=== PATIENT | male | born 2000 | race Caucasian/White ===

== ENCOUNTER 2024-11-25 16:20 | Emergency (ER) | payer BC, SELFPAY ==
--- NOTE | 2024-11-25 16:26 | ED_ITS ---
HPI - General Adult General Chief complaint: Upper Respiratory Infection Stated complaint: Strep throat Time Seen by Provider: 11/25/24 16:26 Source: patient Mode of arrival: ambulatory Limitations: no limitations History of Present Illness HPI narrative: 24-year-old male patient presents to the [facility] with complaints of a sore throat for the past 2-3 days. Denies fever but states has had some body aches and chills. Patient states he has had a mild cough and a little bit of a runny nose and congestion. Denies ear pain. Denies chest pain or shortness of breath. Denies abdominal pain, nausea, vomiting or diarrhea. Related Data Home Medications ?Medication ?Instructions ?Recorded ?Confirmed ?Last Taken ?Type No Home Medications 11/25/24 11/25/24 Unknown History Allergies Allergy/AdvReac Type Severity Reaction Status Date / Time No Known Allergies Allergy Verified 11/25/24 16:33 Review of Systems Review of Systems: CONSTITUTIONAL: Denies fever, Positive body aches and chills, or sweats. EYES: Denies visual changes, redness, or discharge. ENT: positive rhinorrhea, congestion, sore throat, denies otalgia. CARDIOVASCULAR: Denies chest pain, palpitations, or edema. RESPIRATORY: positive cough , denies dyspnea. GASTROINTESTINAL: Denies abdominal pain, nausea, vomiting, or diarrhea. GENITOURINARY: Denies dysuria or hematuria. SKIN: Denies rash or itching. MUSCULOSKELETAL: Denies back pain, joint pain, or myalgia. NEUROLOGIC: Denies headache, numbness, or weakness. PSYCHIATRIC: Denies anxiety or depression. PMFSH Comments At the time of my signature I agree with nursing past medical history, surgical, social, and family history. There is no relevant family history pertinent to the presenting complaint. Exam Narrative: GENERAL: Well-appearing, well-nourished, and in no acute distress. HEAD: Normocephalic, atraumatic. EYES: PERRLA and EOMI. ENT: Nares with erythema and edema noted bilaterally, no rhinorrhea or epistaxis. Mucous membranes moist. posterior pharynx with 3+ tonsillar enlargement with erythema and there is white patches noted to bilateral tonsils. bilateral TMs are clear no erythema or foreign bodies the canal. NECK: Supple. No lymphadenopathy CHEST: Clear to auscultation. No respiratory distress. HEART: Regular rate and rhythm. No murmur heard. Normal peripheral pulses. ABDOMEN: Soft, nontender, nondistended, normal active bowel sounds. EXTREMITIES: Normal range of motion. No edema. SKIN: Warm, dry, no rash. NEURO: No focal deficits. Alert and oriented x3. Course Course Level of Care: Express Care Visit Vital Signs Vital signs: Vital Signs Temperature 37.2 C 11/25/24 16:32 Pulse Rate 92 11/25/24 16:32 Respiratory Rate 18 11/25/24 16:32 Blood Pressure 143/94 H 11/25/24 16:32 Pulse Oximetry 97 11/25/24 16:32 Oxygen Delivery Room Air 11/25/24 16:32 Temperature 37.2 C 11/25/24 16:32 Pulse Rate 92 11/25/24 16:32 Respiratory Rate 18 11/25/24 16:32 Blood Pressure 143/94 H 11/25/24 16:32 Pulse Oximetry 97 11/25/24 16:32 Oxygen Delivery Room Air 11/25/24 16:32 vital signs reviewed The patient has been informed that they may have pre-hypertension or Hypertension based on a BP reading in the department. I recommend that the patient call the primary care provider listed on their discharge instructions or a physician of their choice this week to arrange follow up for further evaluation of possible pre-hypertension or Hypertension Medical Decision Making MDM Narrative Medical decision making narrative: discussed with patient that his point of care testing for strep was negative. We will send that to the lab for culture and if the culture comes back positive we will call him in antibiotics at that time. Discussed with patient and offered testing for flu and COVID while he was here and he has agreed. Discussed with him that if these are negative would continue to recommend using [id number] medications to help with symptoms. Patient verbalized understanding denies any other questions or concerns at this time. Differential Diagnosis Differential Diagnosis: differential diagnosis: Viral pharyngitis, pharyngitis, group A strep, infectious mononucleosis, gonococcal pharyngitis, exudative pharyngitis, oral ca ndidiasis. Chronic allergies, postnasal drip, GERD, abscess formation, but glottitis, retropharyngeal abscess formation, or airway obstruction. Vital Signs Vital Signs: Vital Signs Temperature 37.2 C 11/25/24 16:32 Pulse Rate 92 11/25/24 16:32 Respiratory Rate 18 11/25/24 16:32 Blood Pressure 143/94 H 11/25/24 16:32 Pulse Oximetry 97 11/25/24 16:32 Oxygen Delivery Room Air 11/25/24 16:32 Temperature 37.2 C 11/25/24 16:32 Pulse Rate 92 11/25/24 16:32 Respiratory Rate 18 11/25/24 16:32 Blood Pressure 143/94 H 11/25/24 16:32 Pulse Oximetry 97 11/25/24 16:32 Oxygen Delivery Room Air 11/25/24 16:32 Lab Data Labs: Lab Results 11/25/24 Range/Units 16:45 POC Grp A Strep Screen Negative (Negative) Critical Care Time Critical Care Time Critical Care Time: No Discharge Plan Discharge Clinical Impression: Exudative pharyngitis Patient Disposition: Home, Self-Care Condition: Stable Instructions: Antibiotic Form, Pharyngitis (ED) Additional Instructions: A sore throat can be caused by an infection from a virus or bacteria. Sore throat can also be caused by postnasal drip, allergies, and exposure to smoke. A viral sore throat last 3-4 days and cannot be treated with antibiotics. One type of sore throat virus, infectious mononucleosis ( mono ), can last for 3 weeks and older children. The germs that cause these infections are contagious and can be spread by coughing or sharing drinks or utensils. Contact her primary care physician or go to the ER if: Your trouble breathing or swallowing because her throat is swollen or sore. You're drooling because it hurts too much to swallow. You're painful lump in your throat go away after 5 days. You're fever is higher than 10 2??F or last longer than 3 days. You have confusion. You are blood in your throat. You're sore throat should feel better within 3-5 days without treatment if it is caused by virus. You may need the following: Ibuprofen or Tylenol as needed for pain or fever Gargle warm salt water Drink more liquids, cold or warm drinks may help soothe her throat. Humidifier in your room. Cough drops, ice, soft foods, or popsicles may help soothe her throat. A spoonful of honey could help with inflammation and soothe her throat. Wash her hands with soap and water, do not share food or drinks, throat away her toothbrush after 72 hours. Patient Language: Thai Prescriptions: No Action No Home Medications Follow-up/Referrals: Codey Mckeon DO [Primary Care Provider] - Time of Disposition: 17:05
--- OUTSIDE RECORDS SUMMARY | 2024-11-25 16:29 | XMS_ITS | Clinical Summary ---
Author Organization [facility] Address [address] [place] [address] Care Team Providers Care Paralegal Instructor Name Role Phone López Mckeon DO Primary Care Provider + Allergies No known active allergies Medications cyclobenzaprine (FLEXERIL) 10 MG tablet Take 1 tablet (10 mg total) by mouth 3 (three) times daily as needed. 06/24/2024 Active hydrOXYzine (VISTARIL) 50 MG capsule TAKE 1 CAPSULE BY MOUTH FOUR TIMES DAILY NEEDED 06/24/2024 Active multivitamin with minerals liquid Take 15 mLs by mouth daily. Active Active Problems Problem Noted Date Diagnosed Date ADHD 11/27/2019 Immunizations Name Administration Dates Next Due Dtap 02/25/2003, 9,1998,1998,04/01 HPV4 (Gardasil) 04/04/2012 Hepatitis A (Generic) 04/04/2012 Hepatitis B 1998,1998 Hepatitis B (Generic Peds) 1998 Hib (Generic) 07/28/1999,1998,1998 ,1998 Influenza Adult (Generic) 05/23/2009 MMR 02/25/2003,05/18/1999 Menactra 04/04/2012 Polio Ipv (Generic) 02/25/2003,1998,1997,1998 Tdap (Boostrix) 04/04/2012 Varicella Vaccine 04/04/2012,04/17/1999 Family History Medical History Relation Comments Hypertension Mother Kidney Disease Mother Lupus Mother Relation Status Comments Mother Social History Tobacco Use Types Packs/Day Years Used Date Smoking Tobacco: Every Day Electronic Cigarettes Smokeless Tobacco: Never Tobacco Cessation:Ready to Q uit: No; Counseling Given: Yes Comments:Provider to dependency counselor Alcohol Use Standard Drinks/Week Comments Not Currently 0 (1 standard drink = 0.6 oz pur e alcohol) Social events PHQ-2 Answer Date Recorded Patient Health Questionnaire-2 Score 0 05/08/2024 Sex and Gender Information Value Date Recorded Sex Assigned at Not on file Legal Sex Male 9:42 AM CALCULUS PROFESSOR Gender Identity Not on file Sexual Orientation Not on file Occupation Industry Job Start Date Job End Date Not on file Not on file Not on file Not on file Last Filed Vital Signs Vital Sign Reading Time Taken Comments Blood Pressure 122/86 07/03/2024 8:00 AM CALCULUS PROFESSOR Pulse 105 07/03/2024 8:00 AM CALCULUS PROFESSOR Temperature 36.8 C (98.3 F) 07/03/2024 8:00 AM CALCULUS PROFESSOR Respiratory Rate 16 07/03/2024 8:00 AM CALCULUS PROFESSOR Oxygen Saturation 98% 07/03/2024 8:00 AM CALCULUS PROFESSOR Inhaled Oxygen Concentration - - Weight 106.7 kg (235 lb 4.8 oz) 07/03/2024 8:00 AM CALCULUS PROFESSOR Height 180.3 cm (5' 11 ) 07/03/2024 8:00 AM CALCULUS PROFESSOR Body Mass Index 32.82 07/03/2024 8:00 AM CALCULUS PROFESSOR Plan of Treatment Health Maintenance Due Date Last Done Comments Pneumococcal Vaccine: Pediatrics (0 to 5 Years) and At-Risk Patients (6 to 64 Years) (1 of 2 - PCV) 01/16/2004 HPV Vaccines (2 - Male 2-dose series) 10/05/2012 04/04/2012 Annual Physical 08/24/2019 08/24/2018 DTaP, Tdap and Td Vaccines (7 - Td or Tdap) 04/04/2022 04/04/2012, 02/25/2003, 07/28/1999, Additional history exists PHQ-2 (Physician [place]) 08/29/2024 05/08/2024 COVID-19 Vaccine ( season) 2025 Postponed from 04/29/2024 (Going to Outside Clinic) Hepatitis B Vaccines Completed 1998, 1998, 1998 Meningococcal Vaccine Aged Out 04/04/2012 No jaqueline yamilet eligible based on patient's age to complete this topic Hepatitis C Completed 05/08/2024 Meningococcal B Vaccine Aged Out No l onger eligible based on patient's age to complete this topic RSV Immunizations Under 20 Months Aged Out No longer eligible based on patient's age to complete this topic Procedures Procedure Name Priority Date/Time Associated Diagnosis Comments HEPATITIS C ANTIBODY Routine 05/08/2024 10:14 AM CDT Need for hepatitis C screening test from Last 3 Months or Most Recently Relevant to Health Maintenance Results * HEPATITIS C ANTIBODY (05/08/2024 10:14 AM CDT) HEPATITIS C AB NON-REACTI VE NON-REACT VERONIKA 05/08/2024 6:52 PM CDT [facility] Comment: ANTIBODIES TO HCV NOT DETECTED. DOES NOT EXCLUDE THE POSSIBILITY OF EXPOSURE TO HCV. 05/08/2024 10:1 4 AM CDT us López Mckeon DO LABORATORY Final Re sult [facility] [address] [place] [address], [id number] from Last 3 Months or Most Recently Relevant to Health Maintenance [place] [place] [address] Care Teams Paralegal Instructor Relationship Specialty Start Date End Date López Mckeon DO [address] [place] [address] [phone] PCP - General FAMILY PRACTICE 08/10/18
--- OUTSIDE RECORDS SUMMARY | 2024-11-25 16:29 | XMS_ITS | Clinical Summary ---
Author Organization [facility] [address] Address [address] [place] [address] Care Team Providers Care Shipyard Painting Supervisor Name Role Phone Unknown, Notinfile Primary Care Provider Unavail able Allergies No known active allergies Medications predniSONE (DELTASONE) 10 mg tablet Take 4 tabs days 1-3, take 3 tabs day 4-6, take 2 tabs day 7-9, take 1 tab days 10-14 32 tablet 10/27/2023 Active triamcinolone (KENALOG) 0.1 % cream Apply to affected area 1-2 times daily as needed. Avoid face and groin. 30 g 10/27/2023 Active Active Problems Problem Noted Date Diagnosed Date ADHD 11/27/2019 Social History Tobacco Use Types Packs/Day Years Used Date Smoking Tobacco: Never Assessed Sex and Gender Information Value Date Recorded Sex Assigned at Not on file Legal Sex Male 8:37 AM CUTTER GRINDER OPERATOR Gender Identity Male 10/27/2023 4:42 PM CUTTER GRINDER OPERATOR Sexual Orientation Straight 10/27/2023 4: 42 PM CUTTER GRINDER OPERATOR Obstetrics History Last Filed Vital Signs Vital Sign Reading Time Taken Comments Blood Pressure 156/78 10/27/2023 5:39 PM CUTTER GRINDER OPERATOR Pulse 87 10/27/2023 5:39 PM CUTTER GRINDER OPERATOR Temperature 36.9 C (98.4 F) 10/27/2023 5:39 PM CUTTER GRINDER OPERATOR Respiratory Rate 12 10/27/2023 5:39 PM CUTTER GRINDER OPERATOR Oxygen Saturation 97% 10/27/2023 5:39 PM CUTTER GRINDER OPERATOR Inhaled Oxygen Concentration - - Weight 90.7 kg (200 lb) 10/27/2023 5:39 PM CUTTER GRINDER OPERATOR Height 180.3 cm (5' 11 ) 10/27/2023 5:39 PM CUTTER GRINDER OPERATOR Body Mass Index 27.89 10/27/2023 5:39 PM CUTTER GRINDER OPERATOR Plan of Treatment Health Maintenance Due Date Last Done Comments Depression Screening 1998 Hepatitis C Screening 1998 HPV Vaccines (2 - Male 2-dose series) 10/05/2012 04/04/2012 Regular Well Visit/Exam 18-64 01/16/2016 DTaP/Tdap/Td Vaccine (7 - Td or Tdap) 04/04/2022 04/04/2012, 02/25/2003, 02/25/2003, Additional history exists Covid-19 Vaccine ( season) 2024 05/22/2021, 05/01/2021 Influenza Vaccine (#1) 2024 05/23/2009 Hepatitis B Screening Completed 1998 , 1998, 1998 Varicella Vaccines Completed 04/04/2012, 04/17/1999 Pneumococcal vaccine <65 Aged Out No longer eligible based on patient's age to complete this topic Insurance [facility] Care Teams Shipyard Painting Supervisor Relationship Specialty Start Date End Date Unknown, Notinfile PCP - General 10/27/23
--- OUTSIDE RECORDS SUMMARY | 2024-11-25 16:29 | XMS_ITS | Referral Summary ---
Author Organization [facility] [address] Address [address] [place] [address] Care Team Providers Care Aluminum Pool Installer Name Role Phone Unknown, Notinfile Primary Care [...] on file Legal Sex Male 8:37 AM EQUAL OPPORTUNITY COUNSELOR Gender Identity Male 10/27/2023 4:42 PM EQUAL OPPORTUNITY COUNSELOR Sexual Orientation Straight 10/27/2023 4: 42 PM EQUAL OPPORTUNITY COUNSELOR Last Filed Vital Signs Vital Sign Reading Time Taken Comments Blood Pressure 156/78 10/27/2023 5:39 PM EQUAL OPPORTUNITY COUNSELOR Pulse 87 10/27/2023 5:39 PM EQUAL OPPORTUNITY COUNSELOR Temperature 36.9 C (98.4 F) 10/27/2023 5:39 PM EQUAL OPPORTUNITY COUNSELOR Respiratory Rate 12 10/27/2023 5:39 PM EQUAL OPPORTUNITY COUNSELOR Oxygen Saturation 97% 10/27/2023 5:39 PM EQUAL OPPORTUNITY COUNSELOR Inhaled Oxygen Concentration - - Weight 90.7 kg (200 lb) 10/27/2023 5:39 PM EQUAL OPPORTUNITY COUNSELOR Height 180.3 cm (5' 11 ) 10/27/2023 5:39 PM EQUAL OPPORTUNITY COUNSELOR Body Mass Index 27.89 10/27/2023 5:39 PM EQUAL OPPORTUNITY COUNSELOR Plan of Treatment Not on file Insurance [facility] Care Teams Aluminum Pool Installer Relationship Specialty Start Date End Date Unknown, Notinfile PCP - General 10/27/23
--- OUTSIDE RECORDS SUMMARY | 2024-11-25 16:29 | XMS_ITS | Clinical Summary ---
Author Organization [facility] Address [address] [place] [address] Care Team Providers Care Laborer Marine Terminal Name Role Phone Salu Young MD Primary Care Provider [phone] Source Comments [facility],non-owned Affiliates and Associated Physician Practices is amultiple site organization consisting of ambulatory clinics and hospital sitesin [place], [place] and [place]. This disclosure is being madepursuant to the Care Everywhere program and may not contain all information available regarding this patient. Last updated 18.[facility] Allergies No known active allergies Medications * Be aware that medications may not be up to date on this document. Alwaysverify current medications with the patient. Medication Sig Dispensed Refills Start Date End Date Status ibuprofen (MOTRIN) 600 MG tablet Take 1 Tab by mouth every 6 hours as needed for Pain 20 Tab 0 01/19/2016 Active Social History Tobacco Use Types Packs/Day Years Used Date Smoking Tobacco: Never Alcohol Use Standard Drinks/Week Comments No 0 (1 standard drink = 0.6 oz pur e alcohol) Sex and Gender Information Value Date Recorded Sex Assigned at Not on file Gender Identity Not on file Sexual Orientation Not on file Last Filed Vital Signs Vital Sign Reading Time Taken Comments Blood Pressure 133/64 01/19/2016 5:57 PM CDT Pulse 77 01/19/2016 5:57 PM CDT Temperature 36.4 C (97.5 F) 01/19/2016 3:26 PM CDT Respiratory Rate 19 01/19/2016 5:57 PM CDT Oxygen Saturation 100% 01/19/2016 5:57 PM CDT Inhaled Oxygen Concentration - - Weight 83.1 kg (183 lb 3.2 oz) 01/19/2016 3:26 P M CDT Height 180.3 cm (5' 10.98 ) 01/19/2016 3:26 PM C DT Body Mass Index 25.56 01/19/2016 3:26 PM CDT Plan of Treatment Health Maintenance Due Date Last Done Comments HIV SCREENING 2013 HPV VACCINE (1 - Male 3-dose series) 2013 DTAP/TDAP/TD VACCINES (1 - Tdap) 2017 HEPATITIS B VACCINE (1 of 3 - 19+ 3-dose series) 2017 COVID-19 VACCINE (1 - 2023-2 5 season) 2024 INFLUENZA VACCINE (#1) 2024 05/23/2009 DEPRESSION SCREENING 08/29/2024 ZOSTER VACCINE (1 of 2) 01/16/2048 HEPATITIS C SCREENING Completed 05/08/2024 HIB VACCINE Aged Out No longer eligi ble based on patient's age to complete this topic MENINGOCOCCAL (Group B) VACC INE SHARED DECISION-MAKING Aged Out No longer eligibl e based on patient's age to complete this topic MENINGOCOCCAL GROUPS A/C/Y/W VACCINE Aged Out No longer eligible b ased on patient's age to complete this topic PNEUMOCOCCAL VACCINE Aged Out No long er eligible based on patient's age to complete this topic Care Teams Laborer Marine Terminal Relationship Specialty Start Date End Date Saul Young MD [address] [place] [address] [phone] (work) PCP - General Family Medicine 01/19/16
[2024-11-25 16:32] VITALS: BP 143/94; PULSE 92; RESP 18; TEMP 37.2; O2SAT 97
[2024-11-25 16:47] LABS: EDSTREPNEGPOS1 Negative (Negative)
[2024-11-25 17:08] LABS: EDCOVIDSCREEN Negative (Negative); EDINFLUASCREEN Negative (Negative); EDINFLUBSCREEN Negative (Negative)
== END 2024-11-25 17:09 | disposition home or self-care (01) ==
PROVIDERS: Emergency Provider Nurse Practitioner Family; PCP Anesthesiology
DX: J02.9 Acute pharyngitis, unspecified (principal); Z20.822 Contact with and (suspected) exposure to COVID-19
CPT/HCPCS: 87081; 87426; 87804; 87880; 99213; G0463

== ENCOUNTER 2025-04-08 22:25 | Emergency (ER) | payer BC, SELFPAY ==
--- OUTSIDE RECORDS SUMMARY | 2025-04-08 22:29 | XMS_ITS | Clinical Summary ---
Author Organization [facility] [address] Address [address] [place] [address] Care Team Providers Care Stonework Supervisor Name Role Phone Unknown, Notinfile Primary [...] on file Legal Sex Male 8:37 AM TUGBOAT DISPATCHER Gender Identity Male 10/27/2023 4:42 PM TUGBOAT DISPATCHER Sexual Orientation Straight 10/27/2023 4: 42 PM TUGBOAT DISPATCHER Obstetrics History Last Filed Vital Signs Vital Sign Reading Time Taken Comments Blood Pressure 156/78 10/27/2023 5:39 PM TUGBOAT DISPATCHER Pulse 87 10/27/2023 5:39 PM TUGBOAT DISPATCHER Temperature 36.9 C (98.4 F) 10/27/2023 5:39 PM TUGBOAT DISPATCHER Respiratory Rate 12 10/27/2023 5:39 PM TUGBOAT DISPATCHER Oxygen Saturation 97% 10/27/2023 5:39 PM TUGBOAT DISPATCHER Inhaled Oxygen Concentration - - Weight 90.7 kg (200 lb) 10/27/2023 5:39 PM TUGBOAT DISPATCHER Height 180.3 cm (5' 11) 10/27/2023 5:39 PM TUGBOAT DISPATCHER Body Mass Index 27.89 10/27/2023 5:39 PM TUGBOAT DISPATCHER Plan of Treatment Health Maintenance Due Date Last Done Comments Depression Screening 1998 Hepatitis C Screening 1998 HPV Vaccines (2 - Male 2-dose series) 10/05/2012 04/04/2012 Regular Well Visit/Exam 18-64 01/16/2016 DTaP/Tdap/Td Vaccine (7 - Td or Tdap) 04/04/2022 04/04/2012, 02/25/2003, 02/25/2003, Additional history exists Covid-19 Vaccine ( season) 2024 05/22/2021, 05/01/2021 Influenza Vaccine (#1) 2025 05/23/2009 Hepatitis B Screening Completed 1998 , 1998, 1998 Varicella Vaccines Completed 04/04/2012, 04/17/1999 Pneumococcal vaccine <65 Aged Out No longer eligible based on patient's age to complete this topic Insurance [facility] Care Teams Stonework Supervisor Relationship Specialty Start Date End Date Unknown, Notinfile PCP - General 10/27/23
--- OUTSIDE RECORDS SUMMARY | 2025-04-08 22:29 | XMS_ITS | Clinical Summary ---
Author Organization [facility] Address [address] [place] [address] Care Team Providers Care Binding End Stitcher Name Role Phone Saul Young MD Primary Care Provider [phone] Source Comments [facility],non-owned Affiliates and Associated Physician Practices is amultiple site organization consisting of ambulatory clinics and hospital sitesin [place], [place], [place] and [place]. This disclosure is being madepursuant to the Care Everywhere program and may not contain all information available regarding this patient. Last updated 18.[facility] Allergies No known active allergies Medications * Be aware that medications may not be up to date on this document. Alwaysverify current medications with the patient. ibuprofen (MOTRIN) 600 MG tablet Take 1 [...] at Not on file Legal Sex Male 5:38 AM DELIVERY CONSULTANT Gender Identity Not on file Sexual Orientation [...] P M CDT Height 180.3 cm (5' 10.98) 01/19/2016 3:26 PM C DT Body Mass Index 25.56 01/19/2016 3:26 PM CDT Plan of Treatment Health Maintenance Due Date Last Done Comments HIV SCREENING 2013 DTAP/TDAP/TD VACCINES (1 - Tdap) 2017 HEPATITIS B VACCINE (1 of 3 - 19+ 3-dose series) 2017 COVID-19 VACCINE (1 - 2023-2 5 season) 2024 DEPRESSION SCREENING 08/29/2024 HPV VACCINE (1 - 3-dose SCDM series) 2025 INFLUENZA VACCINE (#1) 2025 05/23/2009 ZOSTER VACCINE (1 of 2) 01/16/2048 HEPATITIS [...] patient's age to complete this topic Insurance Care Teams Binding End Stitcher Relationship Specialty Start Date End Date Saul Young MD [address] [place] [id number] PCP - General Family Medicine 01/19/16
--- OUTSIDE RECORDS SUMMARY | 2025-04-08 22:29 | XMS_ITS | Clinical Summary ---
Author Organization [facility] Address [address] [place] [address] Care Team Providers Care Nuclear Control Room Operator Name Role Phone López Mckeon DO Primary [...] Noted Date Diagnosed Date ADHD 11/27/2019 Immunizations Immunization Administration Dates Next Due Dtap 02/25/2003, 9,1998,1998,04/01 [...] uit: No; Counseling Given: Yes Comments:Provider to enrollment counselor Alcohol Use Standard Drinks/Week Comments Not Currently 0 (1 standard drink = 0.6 oz pur e alcohol) Social events PHQ-2 Answer Date Recorded Patient Health Questionnaire-2 Score 0 05/08/2024 Sex and Gender Information Value Date Recorded Sex Assigned at Not on file Legal Sex Male 9:42 AM MINIATURE SET CONSTRUCTOR Gender Identity Not on file Sexual Orientation Not on file Occupation Industry Job Start Date Job End Date Not on file Not on file Not on file Not on file Last Filed Vital Signs Vital Sign Reading Time Taken Comments Blood Pressure 122/86 07/03/2024 8:00 AM MINIATURE SET CONSTRUCTOR Pulse 105 07/03/2024 8:00 AM MINIATURE SET CONSTRUCTOR Temperature 36.8 C (98.3 F) 07/03/2024 8:00 AM MINIATURE SET CONSTRUCTOR Respiratory Rate 16 07/03/2024 8:00 AM MINIATURE SET CONSTRUCTOR Oxygen Saturation 98% 07/03/2024 8:00 AM MINIATURE SET CONSTRUCTOR Inhaled Oxygen Concentration - - Weight 106.7 kg (235 lb 4.8 oz) 07/03/2024 8:00 AM MINIATURE SET CONSTRUCTOR Height 180.3 cm (5' 11) 07/03/2024 8:00 AM MINIATURE SET CONSTRUCTOR Body Mass Index 32.82 07/03/2024 8:00 AM MINIATURE SET CONSTRUCTOR Plan of Treatment Health Maintenance Due Date Last Done Comments HPV Vaccines (2 - Male 2-dose series) 10/05/2012 04/04/2012 Pneumococcal Vaccine: Pediatrics (0 to 5 Years) and At-Risk Patients (6 to 49 Years) (1 of 2 - PCV) 2017 Annual Physical 08/24/2019 08/24/2018 DTaP, Tdap and Td Vaccines (7 - Td or Tdap) 04/04/2022 04/04/2012, 02/25/2003, 07/28/1999, Additional history exists PHQ-2 (Physician Donna) 08/29/2024 05/08/2024 COVID-19 Vaccine ( season) 2025 [...] VE NON-REACT VERONIKA 05/08/2024 6:52 PM CDT [facility] Comment: ANTIBODIES TO HCV NOT DETECTED. DOES NOT EXCLUDE THE POSSIBILITY OF EXPOSURE TO HCV. 05/08/2024 10:1 4 AM CDT us López Mckeon DO LABORATORY Final Re sult [facility] [address] [place] [address], [id number] from Last 3 Months or Most Recently Relevant to Health Maintenance [place] [address] Care Teams Nuclear Control Room Operator Relationship Specialty Start Date End Date López Mckeon DO [address] [place] [address] [phone] PCP - General FAMILY PRACTICE 08/10/18
--- OUTSIDE RECORDS SUMMARY | 2025-04-08 23:42 | XMS_ITS | Clinical Summary ---
Author Organization [facility] Address [address] [place] [address] Care Team Providers Care Ssis Ssrs Developer Name Role Phone Saul Young MD Primary Care Provider [phone] Source Comments [facility],non-owned Affiliates and Associated Physician Practices is amultiple site organization consisting of ambulatory clinics and hospital sitesin [place], [place], [place] and [place]. This disclosure is being madepursuant to the Care Everywhere program and may not contain all information available regarding this patient. 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
--- OUTSIDE RECORDS SUMMARY | 2025-04-08 23:42 | XMS_ITS | Clinical Summary ---
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 Gender Identity Not on file Sexual Orientation Not on file Occupation Industry Job Start Date Job End Date Not on file Not on file Not on file Not on file Last Filed Vital Signs Vital Sign Reading Time Taken Comments Blood Pressure 122/86 07/03/2024 8:00 AM DESIGN CELL ENGINEER Pulse 105 07/03/2024 8:00 AM DESIGN CELL ENGINEER Temperature 36.8 C (98.3 F) 07/03/2024 8:00 AM DESIGN CELL ENGINEER Respiratory Rate 16 07/03/2024 8:00 AM DESIGN CELL ENGINEER Oxygen Saturation 98% 07/03/2024 8:00 AM DESIGN CELL ENGINEER Inhaled Oxygen Concentration - - Weight 106.7 kg (235 lb 4.8 oz) 07/03/2024 8:00 AM DESIGN CELL ENGINEER Height 180.3 cm (5' 11) 07/03/2024 8:00 AM DESIGN CELL ENGINEER Body Mass Index 32.82 07/03/2024 8:00 AM DESIGN CELL ENGINEER Plan of Treatment Health Maintenance Due Date Last Done Comments HPV Vaccines (2 - Male 2-dose series) 10/05/2012 04/04/2012 Pneumococcal Vaccine: Pediatrics (0 to 5 Years) and At-Risk Patients (6 to 49 Years) (1 of 2 - PCV) 2017 Annual Physical 08/24/2019 08/24/2018 DTaP, Tdap and Td Vaccines (7 - Td or Tdap) 04/04/2022 04/04/2012, 02/25/2003, 07/28/1999, Additional history exists PHQ-2 (Physician [place]) 08/29/2024 05/08/2024 COVID-19 Vaccine ( season) 2025 [...] VE NON-REACT VERONIKA 05/08/2024 6:52 PM CDT [facility] Comment: ANTIBODIES TO HCV NOT DETECTED. DOES NOT EXCLUDE THE POSSIBILITY OF EXPOSURE TO HCV. 05/08/2024 10:1 4 AM CDT us López Mckeon DO LABORATORY Final Re sult [facility] [address] [place] [address], [id number] from Last 3 Months or Most Recently Relevant to Health Maintenance [place] [address] [address] Care Teams Supervisor Putty And Caluking Relationship Specialty Start Date End Date López Mckeon DO [address] [place] [address] [phone] PCP - General FAMILY PRACTICE 08/10/18
--- OUTSIDE RECORDS SUMMARY | 2025-04-08 23:42 | XMS_ITS | Clinical Summary ---
Author Organization [facility] [address] Address [address] [place] [address] Care Team Providers Care Vest Backer Name Role Phone Unknown, Notinfile Primary Care [...] on file Legal Sex Male 8:37 AM PRICING CONSULTANT Gender Identity Male 10/27/2023 4:42 PM PRICING CONSULTANT Sexual Orientation Straight 10/27/2023 4: 42 PM PRICING CONSULTANT Obstetrics History Last Filed Vital Signs Vital Sign Reading Time Taken Comments Blood Pressure 156/78 10/27/2023 5:39 PM PRICING CONSULTANT Pulse 87 10/27/2023 5:39 PM PRICING CONSULTANT Temperature 36.9 C (98.4 F) 10/27/2023 5:39 PM PRICING CONSULTANT Respiratory Rate 12 10/27/2023 5:39 PM PRICING CONSULTANT Oxygen Saturation 97% 10/27/2023 5:39 PM PRICING CONSULTANT Inhaled Oxygen Concentration - - Weight 90.7 kg (200 lb) 10/27/2023 5:39 PM PRICING CONSULTANT Height 180.3 cm (5' 11) 10/27/2023 5:39 PM PRICING CONSULTANT Body Mass Index 27.89 10/27/2023 5:39 PM PRICING CONSULTANT Plan of Treatment Health Maintenance Due Date [...] patient's age to complete this topic Insurance [facility] Care Teams Vest Backer Relationship Specialty Start Date End Date Unknown, Notinfile PCP - General 10/27/23
--- NOTE | 2025-04-08 23:52 | ED_ITS ---
HPI - Extremity Injury (Lower) General Chief Complaint: Extremity Injury, Lower Stated Complaint: R lower leg wound Time Seen by Provider: 04/08/25 23:32 History of Present Illness HPI Narrative: 25-year-old male presenting with signs and symptoms of wound infection to his right lower extremity. States that he had a previous wound thereafter he fell while in the gym and sustained a small laceration. The wound has since almost healed but he went on a river trip this last few days and sustained a sunburn and thinks he got infection in his recent wound site. There is some serosanguineous discharge from the wound and some overlying redness and erythema. His ankle swelling to the distal extremity. No systemic features such as fever chills. No new traumatic injuries. He was otherwise in his normal state of health. Unknown tetanus status. Related Data Allergies Allergy/AdvReac Type Severity Reaction Status Date / Time No Known Allergies Allergy Verified 04/08/25 22:26 Review of Systems Review of Systems: As reviewed above in HPI Exam Narrative: GENERAL: [Well-appearing, well-nourished, and in no acute distress.] HEAD: [Normocephalic, atraumatic.] EYES: [PERRLA and EOMI.] ENT: Nares clear, no rhinorrhea or epistaxis. Mucous membranes moist. NECK: Supple. CHEST: [Clear to auscultation. No respiratory distress.] HEART: [Regular rate and rhythm]. No murmur heard. [Normal peripheral pulses.] ABDOMEN: [Soft, nondistended], [nontender], [No rigidity or guarding] EXTREMITIES: Normal range of motion. Mild ankle edema on the right side, anterior jay has an area of some wound/ulceration from previous laceration/a brasion that appears to have some serosanguineous discharge around it with some or erythema overlying with tenderness to palpation consistent with skin cellulitis. No circumferential swelling or streaking redness up the extremity. 2+ dorsalis pedis pulse and good range of motion of the extremity. Ambulatory without difficulty. SKIN: Warm, dry, no rash. NEURO: [No focal deficits]. Alert and oriented [x3.] PSYCH: [Normal mood and affect.] MDM - Extremity Injury (Lower) MDM Narrative Medical decision making narrative: 25-year-old male presenting with signs and symptoms of wound infection to his right lower extremity. States that he had a previous wound thereafter he fell while in the gym and sustained a small laceration. The wound has since almost healed but he went on a river trip this last few days and sustained a sunburn and thinks he got infection in his recent wound site. There is some serosanguineous discharge from the wound and some overlying redness and erythema. His ankle swelling to the distal extremity. No systemic features such as fever chills. No new traumatic injuries. He was otherwise in his normal state of health. Unknown tetanus status. Examination reveals mild ankle edema on the right side, anterior jay has an area of some wound/ulceration from previous laceration/abrasion that appears to have some serosanguineous discharge around it with some or erythema overlying with tenderness to palpation consistent with skin cellulitis. No circumferent ial swelling or streaking redness up the extremity. 2+ dorsalis pedis pulse and good range of motion of the extremity. Ambulatory without difficulty. Patient has cellulitis and will be treated conservatively with oral antibiotics and anti-inflammatory measures as well as topical antibiotics including mupirocin. He was given doxycycline 100 mg orally and discharged home with 10 day supply b.i.d. in addition to mupirocin cream and any 100 mg ibuprofen tablets. Patient encouraged to follow-up with his PCP and given strict return precautions to return to the ER if symptoms of worsening infection develop. Medical Records Attestation: I reviewed the patient's medical records. Discharge Plan Discharge Clinical Impression: Cellulitis Patient Disposition: Home Condition: Stable Instructions: Antibiotic Form, Cellulitis (ED) Additional Instructions: Take the antibiotic twice daily for 10 days. Take the ibuprofen for fever and pain control as well as swelling control the ankle. If the infection appears to be worsening or spreading restart developing symptoms such as intractable fevers, chills or other emergent concerns return to the ER for evaluation otherwise follow-up with regular doctor. Keep the area covered and dry and andrew n he can also apply topical antibiotic cream to the area as well. Patient Language: Kyrgyz Prescriptions: New doxycycline hyclate 100 mg capsule 100 mg PO BID 10 Days Qty: 20 0RF mupirocin [Centany] 2 % ointment 1 applic topical BID Qty: 22 0RF ibuprofen 800 mg tablet 800 mg PO TID PRN (Reason: pain) Qty: 30 0RF Follow-up/Referrals: Codey Mckeon DO [Primary Care Provider] - Time of Disposition: 23:51
[2025-04-09] MEDS: DOXYCYCLINE HYCLATE 100 MG TABLET PO (00:06)
[2025-04-09] MEDS: TETANUS,DIPHTHERIA,AC PERTUSSIS ADULT (0.5 ML) BOOSTRIX IM (00:06)
== END 2025-04-09 00:09 | disposition home or self-care (01) ==
PROVIDERS: Emergency Provider Student in an Organized Health Care Education/Training Program; PCP Anesthesiology
DX: L03.115 Cellulitis of right lower limb (principal); Z23 Encounter for immunization
CPT/HCPCS: 90471; 90715; 99283; A9270